=== PATIENT | male | born 1955 | race American Indian/Alaskan Native ===

== ENCOUNTER 2016-05-09 07:51 | Day surgery (SDC) | payer OTHER ==
[2016-05-09] MEDS ORDERED: DIPRIVAN 10 MG/ML IV ONE ×3 (08:40)
--- NOTE | 2016-05-09 09:08 | Anesthesia Consultation ---
Anesthesia Consult and Med Hx Date of service: 05/09/16 - Airway Anesthetic Teeth Evaluation: Good, Bridges (upper front, secure) ROM Head & Neck: Adequate Mental/Hyoid Distance: Adequate Mallampati Class: Class II Intubation Access Assessment: Probably Good - Pulmonary Exam CTA: Yes - Cardiac Exam Cardiac Exam: RRR - Pre-Operative Health Status ASA Pre-Surgery Classification: ASA3 Proposed Anesthetic Plan: MAC - Pulmonary Hx Smoking: Yes (1/2 PPD) Hx Sleep Apnea: No - Cardiovascular System Hx Hypertension: No Hx Coronary Artery Disease: Yes Hx Angina: No (h/o syncope 2 years ago with unknown etiology, no recent issues) - Central Nervous System Hx Psychiatric Problems: No (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
--- NOTE | 2016-05-09 09:08 | Anesthesia Day of Surgery ---
Anesthesia Day of Surgery - Day of Surgery Patient Examined: Yes Patient H&P Reviewed: Yes Patient is NPO: Yes
[2016-05-09] MEDS ORDERED: NACL 0.9% 1000 ML 1,000 ML IV SCH (10:00)
--- NOTE | 2016-05-09 10:22 | Short Stay Summary ---
Short Stay Documentation - Allergies and Medications Current Medications: Allergies aspirin Allergy (Verified 10/14/13 10:16) Hives Home Medications Medication Instructions Recorded Confirmed Last Taken Type Docusate Sodium [Colace] 100 mg PO BID #60 capsule 10/19/13 05/08/16 Unknown Rx oxyCODONE /ACETAMINOPHEN [Percocet 1 tab PO Q6HR PRN #30 tablet 10/19/13 Unknown Rx 5/325] Crestor 1 tab PO DAILY 05/08/16 05/08/16 05/08/16 History AtorvaSTATin [Lipitor] 05/09/16 05/07/16 History Active Medications Sodium Chloride (Nacl 0.9% 1000 Ml) 1,000 mls @ 50 mls/hr IV DIRECT DIANE Last Admin: 05/09/16 09:29 Dose: 50 mls/hr - Brief post op/procedure progress note Date of procedure: 05/09/16 Pre-op diagnosis: 1. Colon screening 2. H/o colon polyps 3. LGI bleed 4. Weight loss 5.GERD Post-op diagnosis: same (EGD: Esophagitis 2. GERD 3. gastritis 4. Duodenitis Colonoscopy 1. Diverticulosis 2. Internal hemorrhoids) Procedure: 1. EGD with biopsy 2. Colonoscopy Anesthesia: MAC Findings: as above Surgeon: REE IBRAHIM Estimated blood loss: none Pathology: list (1. Antrum 2. Distal esophagus) Specimen disposition: to lab Condition: stable - Disposition Condition at discharge: Stable Disposition: DISCHARGED TO HOME OR SELFCARE Short Stay Discharge Plan Activity: no restrictions Weight Bearing Status: Full Weight Bearing Diet: regular
--- NOTE | 2016-05-09 10:36 | Post Anesthesia Evaluation ---
- Post Anesthesia Evaluation Patient Participated: Yes Airway Patent: Yes Stable Respiratory Function: Yes Nausea/Vomiting: No Temp > 96.8F: Yes Pain Manageable: Yes Adequeate Hydration: Yes Anesthesia Complications: No Block Receding Appropriately: Not Applicable Patient on Ventilator: No
[2016-05-09 10:39] VITALS: BP 124/94
== END 2016-05-09 07:52 | disposition home or self-care (01) ==
LOC: GIO 07:51
PROVIDERS: ATTEND Internal Medicine Gastroenterology
DX: K64.0 First degree hemorrhoids (principal); K57.30 Diverticulosis of large intestine without perforation or abscess without bleeding; K22.70 Barrett's esophagus without dysplasia; K29.70 Gastritis, unspecified, without bleeding; K29.80 Duodenitis without bleeding; F32.9 Major depressive disorder, single episode, unspecified; E78.00 Pure hypercholesterolemia, unspecified; I25.10 Atherosclerotic heart disease of native coronary artery without angina pectoris
CPT/HCPCS: 43239; 45378; 88305; 88342; J2704

== ENCOUNTER 2017-04-23 14:11 | Outpatient (CLI) | payer OTHER ==
--- NOTE | 2017-04-25 13:19 | Magnetic Resonance Report ---
MRI LEFT LOWER LEG WITHOUT CONTRAST: 04/23/17 CLINICAL: Leg pain. COMPARISON:None. TECHNIQUE: Sagittal and coronal T1, coronal and axial T2 fat sat and oblique HER sequences on a 1.5 Elo magnet without contrast. FINDINGS: Normal marrow signal with no bone contusion or fracture. No bone lesion. Limited coverage of the knee and ankle joints which are unremarkable. The muscles have normal signal. No mass. No soft tissue edema. The vascular structures are normal. IMPRESSION: Normal MRI of the lower left leg.
== END 2017-04-23 14:12 | disposition home or self-care (01) ==
LOC: SPVIMAG 14:11
PROVIDERS: ATTEND Physical Medicine & Rehabilitation
DX: M85.862 Other specified disorders of bone density and structure, left lower leg (principal)